=== PATIENT | male | born 1990 | race American Indian/Alaskan Native ===

== ENCOUNTER 2020-02-23 19:23 | Emergency (ER) | payer SELFPAY ==
--- NOTE | 2020-02-23 19:43 | Emergency Department Report ---
- General Stated complaint: LEFT LEG SPIDER BITE Time Seen by Provider: 02/23/20 19:38 Source: patient, RN notes reviewed Limitations: No Limitations - History of Present Illness Initial comments: This is a 29-year-old male nontoxic well in appearance with no signs of distress presents to the ED with complaint of left leg redness and pain. Stated is not sure what bite him. Patient denies any swelling, pus, or drainage. Patient denies any other symptoms. Denies any fever, chills, headache, nausea, vomiting, chest pain or SOB. Denies any other complaints. MD complaint: insect bite/sting -: days(s) Location: LLE Severity: mild Severity scale (0 -10): 8 Quality: aching Consistency: constant Improves with: none Worsens with: none Context: none Associated symptoms: denies other symptoms Treatments Prior to Arrival: none - Related Data Previous Rx's Medication Instructions Recorded Last Taken Type Clindamycin [Clindamycin CAP] 300 mg PO Q8H #21 cap 02/23/20 Unknown Rx Abscess Boil HPI - HPI Stated Complaint: LEFT LEG SPIDER BITE Time Seen by Provider: 02/23/20 19:38 Home Medications: Previous Rx's Medication Instructions Recorded Last Taken Type Clindamycin [Clindamycin CAP] 300 mg PO Q8H #21 cap 02/23/20 Unknown Rx ED Review of Systems ROS: Stated complaint: LEFT LEG SPIDER BITE Other details as noted in HPI Comment: All other systems reviewed and negative Constitutional: denies: chills, fever Eyes: denies: eye pain, eye discharge, vision change ENT: denies: ear pain, throat pain Respiratory: denies: cough, shortness of breath, wheezing Cardiovascular: denies: chest pain, palpitations Endocrine: no symptoms reported Gastrointestinal: denies: abdominal pain, nausea, diarrhea Genitourinary: denies: urgency, dysuria Musculoskeletal: denies: back pain, joint swelling, arthralgia Skin: denies: rash, lesions Neurological: denies: headache, weakness, paresthesias Psychiatric: denies: anxiety, depression Hematological/Lymphatic: denies: easy bleeding, easy bruising ED Past Medical Hx - Medications Home Medications: Home Medications Medication Instructions Recorded Confirmed Last Taken Type Clindamycin [Clindamycin CAP] 300 mg PO Q8H #21 cap 02/23/20 Unknown Rx ED Physical Exam - General General appearance: alert, in no apparent distress - Head Head exam: Present: atraumatic, normocephalic - Eye Eye exam: Present: normal appearance - Neck Neck exam: Present: normal inspection, full ROM. Absent: tenderness, meningismus, lymphadenopathy - Respiratory Respiratory exam: Absent: respiratory distress - Cardiovascular Cardiovascular Exam: Present: regular rate - Extremities Exam Extremities exam: Present: normal inspection, full ROM, tenderness, normal capillary refill. Absent: joint swelling, calf tenderness - Expanded Lower Extremity Exam Left Hip exam: Present: normal inspection, full ROM. Absent: tenderness, swelling Upper Leg exam: Present: normal inspection, full ROM. Absent: tenderness, swelling Knee exam: Present: normal inspection, full ROM. Absent: tenderness, swelling Lower Leg exam: Present: normal inspection, full ROM, tenderness, erythema. Absent: swelling, abrasion, laceration, ecchymosis, deformity, crepidus, dislocation, palpable cord, Vesna's sign Ankle exam: Present: normal inspection, full ROM. Absent: tenderness, swelling Foot/Toe exam: Present: normal inspection, full ROM. Absent: tenderness, swelling Neuro vascular tendon exam: Present: no vascular compromise Gait: Positive: observed and normal 1 - 3 cm x 3 cm celluliits. no swelling or induration noted. - Back Exam Back exam: Present: normal inspection, full ROM - Neurological Exam Neurological exam: Present: alert, oriented X3, normal gait - Psychiatric Psychiatric exam: Present: normal affect, normal mood - Skin Skin exam: Present: warm, dry, intact, normal color. Absent: rash ED Course Vital Signs 02/23/20 19:40 Temperature 99.4 F Pulse Rate 107 H Respiratory 16 Rate Blood Pressure 137/90 O2 Sat by Pulse 96 Oximetry - Reevaluation(s) Reevaluation #1: 02/23/20 19:45 Patient is speaking in full sentences with no signs of distress noted. ED Medical Decision Making - Medical Decision Making This is a 29-year-old male that presents with cellulitis. Patient is stable and was examined by me. The area of redness and cellulitis has been outlined with a permanent marker. Patient will be discharged with Clinda. Patient was instructed to Follow-up with a primary care doctor in 3-5 days or if symptoms worsen and continue return to emergency room as soon as possible. At time of discharge, the patient does not seem toxic or ill in appearance. No acute signs of distress noted. Patient agrees to discharge treatment plan of care. No further questions noted by the patient. Critical care attestation.: If time is entered above; I have spent that time in minutes in the direct care of this critically ill patient, excluding procedure time. ED Disposition Clinical Impression: Cellulitis Qualifiers: Site of cellulitis: extremity Site of cellulitis of extremity: lower extremity Laterality: left Qualified Code(s): L03.116 - Cellulitis of left lower limb Disposition: DC- TO HOME OR SELFCARE Is pt being admited?: No Does the pt Need Aspirin: No Condition: Stable Instructions: Cellulitis, Adult Additional Instructions: Follow-up with a primary care doctor in 3-5 days or if symptoms worsen and continue return to emergency room as soon as possible. Prescriptions: Clindamycin [Clindamycin CAP] 300 mg PO Q8H #21 cap Referrals: PRIMARY MD VALDO [Primary Care Provider] - 3-5 Days ANITA BRAY MD [Staff Physician] - 3-5 Days Forms: Work/School Release Form(ED)
[2020-02-23 19:45] VITALS: BP 137/90
== END 2020-02-23 19:54 | disposition home or self-care (01) ==
LOC: ED 19:23
DX: L03.116 Cellulitis of left lower limb (principal)
CPT/HCPCS: 99282